=== PATIENT | male | born 1940 | race American Indian/Alaskan Native ===

== ENCOUNTER 2017-10-04 08:50 | Day surgery (SDC) | payer MEDICARE ==
[~2017-10-04 08:50] MED LIST: WATER FOR IRRIG STERILE IR ONE
[2017-10-04] MEDS ORDERED: NEO SYNEPHRINE/NS Syringe(OR USE) IV ONE (10:00)
[2017-10-04] MEDS ORDERED: NACL 0.9% 1000 ML 1,000 ML IV SCH (10:00)
[2017-10-04] MEDS ORDERED: XYLOCAINE MPF 2% ONE (10:00)
--- NOTE | 2017-10-04 13:25 | Anesthesia Day of Surgery ---
Anesthesia Day of Surgery - Day of Surgery Patient Examined: Yes Patient H&P Reviewed: Yes Patient is NPO: Yes
--- NOTE | 2017-10-04 13:26 | Anesthesia Consultation ---
Anesthesia Consult and Med Hx Date of service: 10/04/17 - Airway Anesthetic Teeth Evaluation: Good ROM Head & Neck: Adequate Mental/Hyoid Distance: Adequate Mallampati Class: Class II Intubation Access Assessment: Probably Good - Pulmonary Exam CTA: Yes - Cardiac Exam Cardiac Exam: RRR - Pre-Operative Health Status ASA Pre-Surgery Classification: ASA4 Proposed Anesthetic Plan: General - Cardiovascular System Hx Hypertension: Yes - Central Nervous System CVA: Yes - Endocrine Hx End Stage Renal Disease: Yes (on HD) Hx Hypothyroidism: No Hx Hyperthyroidism: No
[2017-10-04] MEDS ORDERED: DIPRIVAN 10 MG/ML IV ONE ×2 (14:36)
--- NOTE | 2017-10-04 15:26 | Operative Report ---
Operative Report Operative Report: Date of procedure: 10/04/2017 Procedure: Colonoscopy with Multiple rectal polyp ablations and hot biopsies, also multiple sigmoid colon polyp biopsies and polyp ablations. Attending physician: Charlie Odonnell MD Data Base Design Analyst: Charlie Odonnell MD Indication: Patient is a 77-year-old male who presents for screening colonoscopy. Patient also has a history of constipation and diffuse abdominal pain. This is with associated bloating and gas. This colonoscopy serves to evaluate patient so that treatment may be directed based on the findings. Consent: Informed consent was obtained after advising the patient and family regarding nature of this procedure, its indications, potential benefits as well as possible complications including but not limited to bleeding perforation and adverse reaction to medication, infection as well as other cardiopulmonary complications. An informed written and verbal consent was then obtained after due opportunity was provided for questions and answers. Monitoring: Patient was monitored continuously with pulse oximetry and electrocardiographic recordings as well as blood pressure recordings. Vital signs remained stable throughout this procedure with no untoward events. Preoperative assessment: Patient was assessed immediately prior to this procedure for capacity to tolerate monitored anesthesia care and moderate sedation as well as general anesthesia. Patient's ASA classification is 2, Mallampati class is 2, Hyomental distance is 3. Instrument: Scaffoldn video colonoscope Medications: Propofol given intravenously in divided doses. For details please refer to anesthesia records. Description of procedure: Patient was placed in the left lateral decubitus position after achieving sedation, a digital rectal examination was performed following which the colonoscope was introduced into the anal verge and advanced to the cecum which was identified by the cecal valve, the appendiceal orifice, as well as by the cecal strap and direct transillumination. The colonoscope was subsequently withdrawn with careful inspection of all mucosal surfaces. Patient tolerated this procedure well and was subsequently taken to the recovery room. The following findings were noted. Findings: Patient had multiple diminutive flat and sessile and polyps in the rectum and sigmoid colon which measured 5-6 mm. Multiple rectal polyps were ablated in all 16 of them. 11 polyps from the rectum were removed by hot biopsy polypectomy. 3 polyps in the sigmoid colon where removed by hot biopsy polypectomy. 5 polyps in the sigmoid colon were ablated. There were diverticula seen in the sigmoid and descending colon. The preparation was suboptimal with thick liquid stool seen in the ascending colon and in the cecum. The rest of the colon to the cecum was normal. On the retroflex view at the anal verge, patient had internal hemorrhoids. Impression: Diminutive rectal and sigmoid colon polyps status post hot biopsy polypectomy and ablation Colonic Diverticulosis. Retained Stools Internal hemorrhoids. Plan: Follow pathology report. High-fiber diet. Repeat colonoscopy in 1 year.
--- NOTE | 2017-10-04 15:26 | Discharge Summary ---
Short Stay Discharge Plan Activity: advance as tolerated Weight Bearing Status: Non-Weight Bearing Follow up with: KIKE STEWART MD [Primary Care Provider] - 7 Days
[2017-10-04 15:49] VITALS: BP 195/91
== END 2017-10-04 08:51 | disposition home or self-care (01) ==
LOC: GIO 08:50
PROVIDERS: ATTEND Internal Medicine Gastroenterology
DX: K63.5 Polyp of colon (principal); D12.8 Benign neoplasm of rectum; K57.30 Diverticulosis of large intestine without perforation or abscess without bleeding; I12.0 Hypertensive chronic kidney disease with stage 5 chronic kidney disease or end stage renal disease; N18.6 End stage renal disease
CPT/HCPCS: 36415; 45384; 45388; 84132; 88305; J2370; J2704; J7030